=== PATIENT | female | born 1985 | race African-American/Black ===

== ENCOUNTER 2018-04-09 19:05 | Emergency (ER) | payer OTHER, MEDICAID ==
[2018-04-09] MEDS ORDERED: predniSONE 20 MG TAB (21:26)
== END 2018-04-09 22:00 | disposition home or self-care (01) ==
LOC: FTE 19:05
DX: J02.9 Acute pharyngitis, unspecified (principal); J45.909 Unspecified asthma, uncomplicated; J32.9 Chronic sinusitis, unspecified; H66.93 Otitis media, unspecified, bilateral
CPT/HCPCS: 99283; J7512

== ENCOUNTER 2018-10-14 08:09 | Emergency (ER) | payer OTHER | END 2018-10-14 09:32 | disposition home or self-care (01) | LOC: FTE 09:32 | DX: J00 Acute nasopharyngitis [common cold] (principal) | CPT/HCPCS: 99283; Z7502 ==

== ENCOUNTER 2019-01-12 13:14 | Emergency (ER) | payer OTHER | END 2019-01-12 13:54 | disposition home or self-care (01) | LOC: E/R 13:54 → FTE 13:14 | DX: J06.9 Acute upper respiratory infection, unspecified (principal); F17.210 Nicotine dependence, cigarettes, uncomplicated | CPT/HCPCS: 99283; Z7502 ==